=== PATIENT | female | born 1970 | race Caucasian/White ===

== ENCOUNTER 2021-09-23 12:10 | Emergency (ER) | payer SELFPAY ==
[2021-09-23 12:12] VITALS: BP 139/110; PULSE 100; RESP 20; TEMP 36.6; O2SAT 95; BMI 58.4
[2021-09-23 12:24] VITALS: O2SAT 95
--- NOTE | 2021-09-23 12:30 | EKG12_ITS ---
Test Reason : Blood Pressure : / mmHG Vent. Rate : 087 BPM Atrial Rate : 087 BPM P-R Int : 150 ms QRS Dur : 086 ms QT Int : 364 ms P-R-T Axes : 025 041 003 degrees QTc Int : 438 ms Normal sinus rhythm T wave abnormality, consider inferior ischemia Abnormal ECG Confirmed by SHERRY LINTON, RONAN ([id number]), online editor ANASTASIA PENALOZA ([id number]) on 09/24/2021 2:44:30 PM Referred By: DANILO Confirmed By:RONAN POWELL MD
[2021-09-23 12:31] VITALS: BP 147/96; PULSE 86; RESP 16
--- NOTE | 2021-09-23 12:32 | EX.ED.DYSGE1 ---
HPI <CHANCE Valdez - Last Filed: 09/23/21 14:44> History of Present Illness Chief Complaint: Shortness of Breath Narrative Narrative: 51-year-old female with history of obesity, atrial fibrillation however does not take any medicine due to an ablation. Patient states that over the last several weeks she has been feeling off, for the last 1 week she has been feeling short of breath as if she cannot get enough air in her lungs. Patient does have a pocket pulse oximeter, this did show the patient to have a pulse ox of 77% with a heart rate of 54, however she states that this could not be accurate. Patient also states she does have intermittent anxiety. Patient denies any fevers or chills. Patient denies any frequent trips, history of DVTs, pulmonary embolus. Patient is here for evaluation [facility] <CHANCE Valdez - Last Filed: 09/23/21 14:44> [facility] Medical History (Updated 09/23/21 @ 14:42 by CHANCE Valdez) A-fib Home Medications metoprolol succinate 50 mg PO DAILY 04/07/15 [History Last Taken Unknown] flecainide 100 mg PO BID 05/15/15 [History Last Taken Unknown] rivaroxaban [Xarelto] 1 ea PO DAILY 05/15/15 [History Last Taken Unknown] Allergy/AdvReac Type Severity Reaction Status Date / Time venom-honey bee Allergy Anaphylaxis Verified 05/15/15 22:17 [bee venom (honey bee)] adhesive AdvReac Rash Verified 05/15/15 22:17 Surgical History (Updated 09/23/21 @ 12:25 by Isra Diego) H/O: History of cardiac radiofrequency ablation Social History Smoking Status: Never smoker ROS <CHANCE Valdez - Last Filed: 09/23/21 14:44> ROS ED ROS Narrative Constitutional: Negative for fever, chills, weight loss or gain, weakness Eyes: Negative for vision loss, vision change, double vision ENT: Negative for any hearing changes, ringing in the ears, dizziness, discharge, pain Nose: Negative for any congestion, runny nose, sinus pain, allergies Throat: Negative for any sore throat hoarseness, voice changes, Cardiovascular: Negative for any chest pain, palpitations, racing heartbeat. Positive for chest pressure Respiratory: Negative for any coughs, sputum production, coughing, hemoptysis. Positive shortness of breath, shortness of breath on exertion Gastrointestinal: Negative for any abdominal pain, nausea, vomiting, diarrhea, constipation, blood in stool, blood in vomit : Negative for any urinary frequency, incontinence, dysuria, retention, blood in urine Muscle skeletal: Negative for any muscle joint pain, stiffness, myalgias, arthralgias, neck pain, back pain Neurological: Negative for any headache, head injury, dizziness, syncope, numbness or tingling Skin: Negative for any rashes, lumps, itching, abrasions, lacerations Psychiatric: Negative for any depression, anxiety, stress, suicidal ideation, homicidal ideation Hematologic: Negative for any easy bruising, excessive bruising, easy bleeding Allergies: Negative for any eczema, hives, rash EXAM <CHANCE Valdez - Last Filed: 09/23/21 14:44> Physical Exam Narrative Exam Narrative: Patient's vital signs are stable, patient appears to be in no respiratory distress Const Vital Signs: 09/23/21 12:12 09/23/21 12:24 09/23/21 12:31 Temperature 97.8 F Temperature Source Temporal Pulse Rate 100 86 Respiratory Rate 20 H 16 Respiratory Effort Short of Breath Respiratory Depth Shallow Respiratory Pattern Tachypnea Blood Pressure 139/110 H 147/96 H Blood Pressure Mean 119 113 Pulse Ox 95 Oxygen Delivery Method Room Air Room Air 09/23/21 14:32 Temperature Temperature Source Pulse Rate 82 Respiratory Rate 18 Respiratory Effort Respiratory Depth Respiratory Pattern Blood Pressure Blood Pressure Mean Pulse Ox 95 Oxygen Delivery Method Room Air Positive well nourished and well developed General Appearance ED: well developed HEENT Reports TM's clear and moist mucous membranes Tympanic Membrane ED: Yes TM's clear Eyes PERRL and EOMs intact bilaterally Neck no lymphadenopathy and supple Chest Wall inspection of chest normal and palpation of chest normal Resp normal respiratory effort and clear to auscultation bilaterally Cardio regular rate, regular rhythm, S1 normal heart sound, S2 normal heart sound and no murmurs GI normal to inspection, nondistended, normoactive bowel sounds, non-tender and non-distended Auscultation: normoactive bowel sounds Palpation: soft Back/Spine no CVA tenderness General Back: CVA tenderness Extremity normal to inspection General Extremety ED: Yes tenderness Neuro oriented x3 and CN's II-XII intact bilaterally Sensorium / Orientation: alert Motor Exam: strength 5/5 throughout Psych mental status grossly normal Skin no rashes or lesions noted <Dr. Annette Farnsworth MD - Last Filed: 09/23/21 14:40> Physical Exam Const Vital Signs: 09/23/21 12:12 09/23/21 12:24 09/23/21 12:31 Temperature 97.8 F Temperature Source Temporal Pulse Rate 100 86 Respiratory Rate 20 H 16 Respiratory Effort Short of Breath Respiratory Depth Shallow Respiratory Pattern Tachypnea Blood Pressure 139/110 H 147/96 H Blood Pressure Mean 119 113 Pulse Ox 95 Oxygen Delivery Method Room Air Room Air 09/23/21 14:32 Temperature Temperature Source Pulse Rate 82 Respiratory Rate 18 Respiratory Effort Respiratory Depth Respiratory Pattern Blood Pressure Blood Pressure Mean Pulse Ox 95 Oxygen Delivery Method Room Air MDM <CHANCE Valdez - Last Filed: 09/23/21 14:44> [facility] Narrative Medical decision making narrative: Patient appears well, patient appears nontoxic, vital signs are stable. Patient presents to the emergency department with multiple days of feeling short of breath, she was concerned about a low pulse ox reading from her pulse oximeter that she has at home. Patient did receive a full respiratory work-up. Patient's laboratory values were unremarkable, patient's chest x-ray showed an elevation of the right heel diaphragm however overall the lungs are clear. Patient did have an elevated D-dimer, patient did receive a CTA of the chest to rule out any pulmonary embolus. Patient did have a normal CTA of the chest with no pulmonary embolus. At this time, I believe the patient feels much better after negative work-up. At this time there is no evidence of any CAD, HI, pulmonary embolus, pneumonia. Patient will follow up closely with her PCP and instructed to see her for further evaluation including stress test, echocardiogram. Patient stable for discharge Lab Data Attestation: I reviewed the patient's lab results. Labs: Laboratory Results - last 24 hr 09/23/21 09/23/21 09/23/21 12:30 12:50 12:50 WBC 6.9 RBC 4.80 Hgb 14.0 Hct 42.5 MCV 88.5 MCH 29.2 MCHC 32.9 RDW Std Deviation 45.3 H RDW Coeff of Cindy 14.0 Plt Count 269 MPV 9.4 Immature Gran % (Auto) 0.100 Neut % (Auto) 72.2 H Lymph % (Auto) 22.5 [place] % (Auto) 3.6 Eos % (Auto) 1.3 Baso % (Auto) 0.3 Absolute Neuts (auto) 4.9 Absolute Lymphs (auto) 1.54 Nucleated RBC % 0 D-Dimer Quant (PE/DVT) 0.54 H* Sodium 138 Potassium 3.3 L Chloride 104 Carbon Dioxide 27.0 Anion Gap 7 BUN 11 Creatinine 1.02 Estim Creat Clear Calc 53.98 Est GFR (MDRD) Af Amer 73 Est GFR (MDRD) Non-Af 61 BUN/Creatinine Ratio 10.8 Glucose 131 H Calcium 9.0 Troponin I High Sens < 3 L B-Natriuretic Peptide 09/23/21 12:50 WBC RBC Hgb Hct MCV MCH MCHC RDW Std Deviation RDW Coeff of Cindy Plt Count MPV Immature Gran % (Auto) Neut % (Auto) Lymph % (Auto) [place] % (Auto) Eos % (Auto) Baso % (Auto) Absolute Neuts (auto) Absolute Lymphs (auto) Nucleated RBC % D-Dimer Quant (PE/DVT) Sodium Potassium Chloride Carbon Dioxide Anion Gap BUN Creatinine Estim Creat Clear Calc Est GFR (MDRD) Af Amer Est GFR (MDRD) Non-Af BUN/Creatinine Ratio Glucose Calcium Troponin I High Sens B-Natriuretic Peptide 27.7 Radiography Diagnostic Testing: Clinical Impression(s) from Imaging Studies Chest X-Ray 09/23/21 13:03 IMPRESSION: There is elevation of the right hemidiaphragm. The lungs are clear. Electronically Signed: Shilo Brown MD at 13:51 EDT , Chest CTA 09/23/21 13:27 IMPRESSION: Normal CTA chest examination, without a demonstrated pulmonary embolism or arterial dissection. Electronically Signed: Shilo Brown MD at 14:08 EDT , EKG Normal sinus rhythm: Attestation: I personally reviewed and interpreted this EKG as follows: Interpretation: Sinus Rhythm Comments: Normal sinus rhythm, rate of 87 bpm, MT interval 150 ms, QRS duration 86 ms, no acute ST elevation, no acute infarct noted <Dr. Annette Farnsworth MD - Last Filed: 09/23/21 14:40> [facility] Lab Data Labs: Laboratory Results - last 24 hr 09/23/21 09/23/21 09/23/21 12:30 12:50 12:50 WBC 6.9 RBC 4.80 Hgb 14.0 Hct 42.5 MCV 88.5 MCH 29.2 MCHC 32.9 RDW Std Deviation 45.3 H RDW Coeff of Cindy 14.0 Plt Count 269 MPV 9.4 Immature Gran % (Auto) 0.100 Neut % (Auto) 72.2 H Lymph % (Auto) 22.5 [place] % (Auto) 3.6 Eos % (Auto) 1.3 Baso % (Auto) 0.3 Absolute Neuts (auto) 4.9 Absolute Lymphs (auto) 1.54 Nucleated RBC % 0 D-Dimer Quant (PE/DVT) 0.54 H* Sodium 138 Potassium 3.3 L Chloride 104 Carbon Dioxide 27.0 Anion Gap 7 BUN 11 Creatinine 1.02 Estim Creat Clear Calc 53.98 Est GFR (MDRD) Af Amer 73 Est GFR (MDRD) Non-Af 61 BUN/Creatinine Ratio 10.8 Glucose 131 H Calcium 9.0 Troponin I High Sens < 3 L B-Natriuretic Peptide 09/23/21 12:50 WBC RBC Hgb Hct MCV MCH MCHC RDW Std Deviation RDW Coeff of Cindy Plt Count MPV Immature Gran % (Auto) Neut % (Auto) Lymph % (Auto) [place] % (Auto) Eos % (Auto) Baso % (Auto) Absolute Neuts (auto) Absolute Lymphs (auto) Nucleated RBC % D-Dimer Quant (PE/DVT) Sodium Potassium Chloride Carbon Dioxide Anion Gap BUN Creatinine Estim Creat Clear Calc Est GFR (MDRD) Af Amer Est GFR (MDRD) Non-Af BUN/Creatinine Ratio Glucose Calcium Troponin I High Sens B-Natriuretic Peptide 27.7 Radiography Diagnostic Testing: Clinical Impression(s) from Imaging Studies Chest X-Ray 09/23/21 13:03 IMPRESSION: There is elevation of the right hemidiaphragm. The lungs are clear. Electronically Signed: Shilo Brown MD at 13:51 EDT , Chest CTA 09/23/21 13:27 IMPRESSION: Normal CTA chest examination, without a demonstrated pulmonary embolism or arterial dissection. Electronically Signed: Shilo Brown MD at 14:08 EDT , Treatment and Re-Evaluation Narrative: Patient seen and evaluated with [facility]. I personally interviewed and examined the patient. I was involved in all aspects of patient's orders, interpretation of results, and treatment. Patient presents with several day history of difficulty getting a deep breath. She states she really does not feel short of breath but has trouble getting a deep breath. She has just felt slightly off. She denies chest pain or palpitations. She does have a home pulse ox machine that reportedly was reading a pulse ox of 77 and a heart rate in the 50s. It is noted that she has dark fingernail tamazight on. Patient does have a history of A. fib but has had cardiac ablation. She is not currently on medication. Patient sitting upright in bed no acute distress. Speaking in full sentences without difficulty. Head and neck examination unremarkable. Heart is regular rate and rhythm. Lung sounds are clear. Abdomen is soft and nontender. EKG, chest x-ray, lab work obtained. Chest x-ray per my interpretation shows no focal infiltrate. EKG reveals no ischemia. Lab work reviewed and remarkable only for slightly elevated D-dimer. CTA is unremarkable. Patient has had no episodes of bradycardia or hypoxia here. Patient is given return instructions and will continue supportive care. Discharge Plan Triage Chief Complaint: Shortness of Breath ED Midlevel Provider: Alexander Harden ED Provider: Annette Farnsworth Dx/Rx/DC Orders Clinical Impression: Shortness of breath, Dyspnea Instructions: Shortness of Breath Maximizing ..., ED Dyspnea Prescriptions: No Action metoprolol succinate 50 MG tablet 50 mg PO DAILY RF: 0 flecainide 100 MG tablet 100 mg PO BID RF: 0 rivaroxaban [Xarelto DVT-PE Treat 30d Start] 1 EACH Tab.Ds.Pk 1 ea PO DAILY RF: 0 Primary Care Provider: Rishabh Hogue Referrals: Rishabh Hogue MD [Primary Care Provider] - Activity Restrictions/Additional Instructions: You need to follow-up with your PCP, you need to follow-up and have a stress test as well as an echocardiogram outpatient.
--- NOTE | 2021-09-23 13:03 | RAD_ITS ---
STUDY: X-RAY CHEST REASON FOR EXAM: Female, 51 years old. Shortness of breath TECHNIQUE: Single AP portable view of the chest. COMPARISON: Comparison is made with prior study dated 04/07/2015. FINDINGS: EKG electrodes are seen. There is elevation of the right hemidiaphragm. The lungs are clear. There is no demonstrated pleural abnormality. Normal size heart. Normal mediastinum and bob. Normal visualized pulmonary arteries. Normal visualized aortic arch and descending thoracic aorta. There are degenerative changes of the visualized thoracic spine. Normal visualized ribs, clavicles, and shoulders. There is no demonstrated abnormality of the visualized soft tissue structures of the upper abdomen. RAD/Chest 1 View (Portable) IMPRESSION: There is elevation of the right hemidiaphragm. The lungs are clear. Electronically Signed: Shilo Brown MD at 13:51 EDT ,
[2021-09-23 13:06] LABS: Absolute Lymphocyte Count 1.54 X10^3/uL (0.83-4.51); Absolute Neutrophil Count 4.9 X10^3/uL (2.0-7.7); Basophil# 0.02 X10^3/uL; Basophil% 0.3 % (0-1); Eosinophil# 0.09 X10^3/uL; Eosinophils% 1.3 % (0-5); Hematocrit 42.5 % (37-47); Lymphocyte # 1.54 X10^3/ul (0.83-4.51); Lymphocyte % 22.5 % (19-41); Mean Corp Hgb Conc 32.9 g/dL (32-36); Mean Corpuscular Hgb 29.2 pg (27.0-32.0); Mean Corpuscular Volume 88.5 fL (81-99); Mean Platelet Vol. 9.4 fl (6.2-12.0); Monocyte# 0.25 X10^3/uL; Monocyte% 3.6 % (0-10); NRBC Flagged by Analyzer 0 % (0-5); Neutrophil # 4.94 X10^3/uL (2.7-7.7); Neutrophil % 72.2 % (47-70); Platelet Count 269 K/mm3 (150-450); RBC Distribution Width SD 45.3 fl (35.1-43.9); White Blood Count 6.9 K/mm3 (4.4-11.0)
[2021-09-23 13:17] LABS: D-Dimer Quantitative (DVT/PE) 0.54 FEU/ug/m (0.27-0.49)
[2021-09-23 13:23] LABS: Anion Gap 7 (5-15); BUN 11 mg/dL (7-18); BUN/Creat Ratio 10.8 RATIO (10-20); Chloride 104 mmol/L (98-107); Creatinine, Serum 1.02 mg/dL (0.55-1.02); EST Glomerular Filtration Rate 61 mL/min (>60); Est Glom Filt Rate - Afr Amer 73 mL/min (>60); Estimated Creatinine Clearance 53.98 ml/min; Glucose 131 mg/dL (74-106); Potassium 3.3 mmol/L (3.5-5.1); Sodium Level 138 mmol/L (136-145); Troponin-I HS < 3 pg/mL (3.0-54.0)
--- NOTE | 2021-09-23 13:27 | CT_ITS ---
STUDY: CTA CHEST REASON FOR EXAM: Female, 51 years old. Concern for PE. Shortness of breath. Tachycardia. RADIATION DOSAGE (If Supplied By Facility): CTDIvol = ( 19.74 ) mGy, DLP = ( 747.06 ) mGycm TECHNIQUE: The examination was performed with the intravenous administration of IV 100mL [id number]-[id number]. Post-processing of the angiographic images was performed, with multiplanar reformation and 3D reconstruction. Individualized dose optimization techniques were used for this CT. COMPARISON: Comparison is made with prior examination dated 03/17/2015. FINDINGS: Normal enhancement of the main pulmonary artery and right and left pulmonary arteries. Normal enhancement of the bilateral peripheral pulmonary arteries. There is no demonstrated pulmonary embolism. Normal thoracic aorta and visualized great vessels. There is no demonstrated aortic dissection. Normal heart and pericardium. Normal mediastinum. Normal hilar regions. Normal visualized trachea and bronchi. The lungs are well expanded. Normal pulmonary parenchyma. Normal pleura. Normal chest wall structures. There are degenerative changes of thoracic spine. Normal visualized upper abdomen. CT/CTA Chest W/WO Contrast IMPRESSION: Normal CTA chest examination, without a demonstrated pulmonary embolism or arterial dissection. Electronically Signed: Shilo Brown MD at 14:08 EDT ,
[2021-09-23 13:41] LABS: BNP,B-Type NATRIURETIC PEPTIDE 27.7 pg/mL (0-100)
[2021-09-23 14:32] VITALS: PULSE 82; RESP 18; O2SAT 95
== END 2021-09-23 14:54 | disposition home or self-care (01) ==
LOC: ED 12:52
PROVIDERS: Nurse Practitioner; Emergency Provider Emergency Medicine; PCP Family Medicine; Visit Provider Emergency Medicine
DX: R06.02 Shortness of breath (principal); I48.91 Unspecified atrial fibrillation; Z68.43 Body mass index [BMI] 50.0-59.9, adult; E66.9 Obesity, unspecified; F41.9 Anxiety disorder, unspecified; Z79.01 Long term (current) use of anticoagulants; Z79.899 Other long term (current) drug therapy
CPT/HCPCS: 71045; 71275; 80048; 83880; 84484; 85025; 85379; 93005; 99285; Q9967; A4216

== ENCOUNTER → 2022-12-13 | Outpatient (CLI) | payer BC, SELFPAY ==
[2022-12-13 13:49] LABS: Vitamin D,25 Hydroxy 105.6 ng/mL
[2022-12-13 13:54] LABS: Erythrocyte Sedimentation Rate 17 mm/hr (0-30)
[2022-12-13 13:58] LABS: Absolute Lymphocyte Count 1.96 X10^3/uL (0.83-4.51); Absolute Neutrophil Count 5.7 X10^3/uL (2.0-7.7); Basophil# 0.04 X10^3/uL; Basophil% 0.5 % (0-1); Eosinophil# 0.13 X10^3/uL; Eosinophils% 1.6 % (0-5); Hematocrit 47.1 % (37-47); Hemoglobin 15.8 g/dL (12.0-15.0); Lymphocyte # 1.96 X10^3/ul (0.83-4.51); Lymphocyte % 23.9 % (19-41); Mean Corp Hgb Conc 33.5 g/dL (32-36); Mean Corpuscular Hgb 28.9 pg (27.0-32.0); Mean Corpuscular Volume 86.1 fL (81-99); Monocyte# 0.32 X10^3/uL; Monocyte% 3.9 % (0-10); NRBC Flagged by Analyzer 0 % (0-5); Neutrophil # 5.72 X10^3/uL (2.7-7.7); Neutrophil % 69.7 % (47-70); Platelet Count 299 K/mm3 (150-450); RBC Distribution Width SD 43.9 fl (35.1-43.9); Red Blood Count 5.47 M/mm3 (4.2-5.4); White Blood Count 8.2 K/mm3 (4.4-11.0)
[2022-12-13 14:00] LABS: ALB/GLOB Ratio 0.8 RATIO (0.9-2.4); AST(SGOT) 10 U/L (15-37); Alanine Aminotransfer ALT/SGPT 22 U/L (13-56); Albumin, Serum 3.4 g/dL (3.2-5.0); Alkaline Phosphatase 75 U/L (45-117); Anion Gap 6 (5-15); BUN 14 mg/dL (7-18); BUN/Creat Ratio 15.8 RATIO (10-20); Chloride 108 mmol/L (98-107); Cholesterol 233 mg/dL (200); Creatinine, Serum 0.89 mg/dL (0.55-1.02); EST Glomerular Filtration Rate 71 mL/min (>60); Est Glom Filt Rate - Afr Amer 86 mL/min (>60); Globulin 4.3 g/dL (2.2-4.2); Glucose 92 mg/dL (74-106); High Density Lipoprotein 52 mg/dL; Magnesium 2.3 mg/dL (1.6-2.6); Potassium 3.4 mmol/L (3.5-5.1); Protein, Total 7.7 g/dL (6.4-8.2); Rheumatoid Factor < 10.0 IU/mL (<15); Sodium Level 139 mmol/L (136-145); Thyroid Stim Hormone (TSH) 2.83 uIU/mL (0.358-3.74); Triglycerides 103 mg/dL; Uric Acid 4.9 mg/dL (2.6-6.0); Very Low Density Lipoprotein 21 mg/dL (5-40)
[2022-12-14 14:10] LABS: ANTINUCLEAR ANTIBODIES DIRECT Negative (Negative)
[2022-12-15 11:08] LABS: PROEL- Albumin 3.4 g/dL (2.9-4.4); PROEL- Alpha-1 Globulin 0.2 g/dL (0.0-0.4); PROEL- Alpha-2 Globulin 0.8 g/dL (0.4-1.0); PROEL- Beta Globulin 1.2 g/dL (0.7-1.3); PROEL- Gamma Globulin 1.3 g/dL (0.4-1.8); PROEL- Globulin, Total 3.5 g/dL (2.2-3.9); PROEL- TOTAL PROTEIN 6.9 g/dL (6.0-8.5)
== END | disposition home or self-care (01) ==
PROVIDERS: PCP Family Medicine; Referring Provider Family Medicine; Visit Provider Family Medicine
DX: M13.0 Polyarthritis, unspecified (principal); I48.91 Unspecified atrial fibrillation; Z13.220 Encounter for screening for lipoid disorders; E55.9 Vitamin D deficiency, unspecified
CPT/HCPCS: 36415; 80053; 80061; 82306; 83735; 84165; 84443; 84550; 85025; 85652; 86038; 86140; 86431

== ENCOUNTER → 2022-12-14 | Outpatient (CLI) | payer BC, SELFPAY ==
--- NOTE | 2022-12-14 10:28 | US_ITS ---
EXAM: US SOFT TISSUES OF THE NECK CLINICAL INDICATION: SUPRACLAVICULAR MASS TECHNIQUE: Real-time ultrasound scan of the soft tissues of the neck with image documentation. COMPARISON: No relevant prior studies available. FINDINGS: SOFT TISSUES: Unremarkable. No abscess. No foreign body. No mass or fluid collection in the area of interest right supraclavicular region. LYMPH NODES: Unremarkable as visualized. US/Head/Neck Soft Tissue IMPRESSION: No mass or fluid collection identified in the area of interest right supraclavicular region. Electronically Signed: Gerardo Lawrence MD at 6:31 EDT ,
== END | disposition home or self-care (01) ==
LOC: US 10:27
PROVIDERS: PCP Family Medicine; Referring Provider Family Medicine; Visit Provider Family Medicine
DX: R22.2 Localized swelling, mass and lump, trunk (principal)
CPT/HCPCS: 76536

== ENCOUNTER → 2023-01-18 | Outpatient (CLI) | payer BC, SELFPAY ==
[2023-01-18 18:09] LABS: Hematocrit 48.7 % (37-47); Hemoglobin 15.4 g/dL (12.0-15.0); Mean Corp Hgb Conc 31.6 g/dL (32-36); Mean Corpuscular Volume 88.5 fL (81-99); Platelet Count 285 K/mm3 (150-450); RBC Distribution Width CV 14.2 % (11.6-14.6); RBC Distribution Width SD 45.7 fl (35.1-43.9); White Blood Count 9.5 K/mm3 (4.4-11.0)
[2023-01-18 19:06] LABS: Follicle Stimulating Hormone 9.7 mIU/mL; Luteinizing Hormone 21.8 mIU/mL
[2023-01-20 13:08] LABS: CCP IgG Antibodies 6 units (0-19)
[2023-01-23 15:07] LABS: Erythropoietin 10.3 mIU/mL (2.6-18.5)
--- NOTE | 2023-03-06 16:22 | RAD_ITS ---
EXAM: XR LEFT HAND COMPLETE, 3 OR MORE VIEWS CLINICAL INDICATION: pain, swelling TECHNIQUE: Frontal, lateral and oblique views of the left hand. COMPARISON: No relevant prior studies available. FINDINGS: BONES/JOINTS: Unremarkable. No acute fracture. No subluxation. Normal alignment. Preservation of the joint space. No sclerotic or destructive changes observed. SOFT TISSUES: Unremarkable. No soft tissue swelling or gas. No radiopaque foreign body. RAD/Hand Min 3 Views IMPRESSION: Negative left hand x-rays. Electronically Signed: Nova Melton MD at 8:35 EDT ,
== END | disposition home or self-care (01) ==
LOC: MFPLAB 15:38
PROVIDERS: PCP Family Medicine; Visit Provider Family Medicine
DX: M79.89 Other specified soft tissue disorders (principal); R79.82 Elevated C-reactive protein (CRP); N95.1 Menopausal and female climacteric states
CPT/HCPCS: 36415; 82668; 83001; 83002; 85027; 86140; 86200

== ENCOUNTER → 2023-03-06 | Outpatient (CLI) | payer BC, SELFPAY ==
--- NOTE | 2023-03-06 16:22 | RAD_ITS ---
STUDY: X-RAY - RIGHT HAND REASON FOR EXAM: Female, 52 years old. PAIN, SWELLING TECHNIQUE: 3 view(s) of the hand. COMPARISON: None. FINDINGS: Normal radiocarpal articulation. Normal distal radioulnar joint. Normal visualized carpal bones. Normal carpal articulations Normal carpometacarpal articulation of the thumb. Normal second through fifth carpometacarpal joints. Normal metacarpi. Normal metacarpophalangeal joint of the thumb. Normal interphalangeal joint of the thumb. Normal proximal and distal phalanges of the thumb. Normal metacarpophalangeal joints of the second through fifth fingers. Normal proximal and distal interphalangeal joints of the second through fifth fingers. Normal phalanges of the second through fifth fingers. The soft tissue structures are unremarkable. RAD/Hand Min 3 Views IMPRESSION: Normal x-ray examination of the hand. Electronically Signed: Irvin Pinon MD at 17:21 EDT ,
== END | disposition home or self-care (01) ==
LOC: MTLAB 16:12
PROVIDERS: PCP Family Medicine; Referring Provider Family Medicine; Visit Provider Family Medicine
DX: M79.89 Other specified soft tissue disorders (principal)
CPT/HCPCS: 73130

== ENCOUNTER → 2023-03-16 | Outpatient (CLI) | payer BC, SELFPAY ==
[2023-03-16 18:24] LABS: Hematocrit 48.9 % (37-47); Hemoglobin 15.6 g/dL (12.0-15.0); Mean Corp Hgb Conc 31.9 g/dL (32-36); Mean Corpuscular Hgb 28.3 pg (27.0-32.0); Mean Corpuscular Volume 88.6 fL (81-99); Mean Platelet Vol. 10.3 fl (6.2-12.0); Platelet Count 277 K/mm3 (150-450); RBC Distribution Width CV 14.6 % (11.6-14.6); RBC Distribution Width SD 47.6 fl (35.1-43.9); Red Blood Count 5.52 M/mm3 (4.2-5.4); White Blood Count 7.7 K/mm3 (4.4-11.0)
[2023-03-16 18:28] LABS: ALB/GLOB Ratio 0.8 RATIO (0.9-2.4); AST(SGOT) 10 U/L (15-37); Alanine Aminotransfer ALT/SGPT 20 U/L (13-56); Albumin, Serum 3.3 g/dL (3.2-5.0); Alkaline Phosphatase 75 U/L (45-117); Anion Gap 8 (5-15); BUN 15 mg/dL (7-18); BUN/Creat Ratio 17.3 RATIO (10-20); Chloride 108 mmol/L (98-107); Creatinine, Serum 0.87 mg/dL (0.55-1.02); EST Glomerular Filtration Rate 73 mL/min (>60); Est Glom Filt Rate - Afr Amer 88 mL/min (>60); Globulin 4.2 g/dL (2.2-4.2); Glucose 86 mg/dL (74-106); Magnesium 2.4 mg/dL (1.6-2.6); Potassium 3.7 mmol/L (3.5-5.1); Protein, Total 7.5 g/dL (6.4-8.2); Sodium Level 137 mmol/L (136-145); Thyroid Stim Hormone (TSH) 2.34 uIU/mL (0.358-3.74)
[2023-03-16 18:46] LABS: Erythrocyte Sedimentation Rate 35 mm/hr (0-30)
[2023-03-20 16:09] LABS: Erythropoietin 6.4 mIU/mL (2.6-18.5)
== END | disposition home or self-care (01) ==
LOC: MTLAB 14:37
PROVIDERS: PCP Family Medicine; Visit Provider Family Medicine
DX: R71.8 Other abnormality of red blood cells (principal); R20.2 Paresthesia of skin; E55.9 Vitamin D deficiency, unspecified
CPT/HCPCS: 36415; 80053; 82306; 82668; 83735; 84443; 85027; 85652

== ENCOUNTER → 2023-07-18 | Outpatient (CLI) | payer BC, SELFPAY ==
[2023-07-18 16:05] LABS: Hematocrit 47.5 % (37-47); Hemoglobin 15.2 g/dL (12.0-15.0); Mean Corpuscular Hgb 28.3 pg (27.0-32.0); Mean Corpuscular Volume 88.5 fL (81-99); Mean Platelet Vol. 9.3 fl (6.2-12.0); Platelet Count 257 K/mm3 (150-450); RBC Distribution Width CV 14.7 % (11.6-14.6); RBC Distribution Width SD 47.8 fl (35.1-43.9); Red Blood Count 5.37 M/mm3 (4.2-5.4); White Blood Count 6.5 K/mm3 (4.4-11.0)
[2023-07-18 16:12] LABS: Anion Gap 5 (5-15); BUN 16 mg/dL (7-18); BUN/Creat Ratio 19.5 RATIO (10-20); CRP 7.47 mg/L (0.0-3.0); Calcium,Total 9.2 mg/dL (8.5-10.1); Chloride 105 mmol/L (98-107); Cholesterol 225 mg/dL (200); Creatinine, Serum 0.82 mg/dL (0.55-1.02); EST Glomerular Filtration Rate 78 mL/min (>60); Est Glom Filt Rate - Afr Amer 94 mL/min (>60); Glucose 90 mg/dL (74-106); High Density Lipoprotein 59 mg/dL; Magnesium 2.5 mg/dL (1.6-2.6); Potassium 3.6 mmol/L (3.5-5.1); Sodium Level 137 mmol/L (136-145); Triglycerides 102 mg/dL; Very Low Density Lipoprotein 20 mg/dL (5-40); Vitamin D,25 Hydroxy 114.3 ng/mL
[2023-07-18 17:02] LABS: Erythrocyte Sedimentation Rate 11 mm/hr (0-30)
== END | disposition home or self-care (01) ==
LOC: MTLAB 14:05
PROVIDERS: PCP Family Medicine; Referring Provider Family Medicine; Visit Provider Family Medicine
DX: E55.9 Vitamin D deficiency, unspecified (principal); G47.33 Obstructive sleep apnea (adult) (pediatric); R20.2 Paresthesia of skin; Z13.220 Encounter for screening for lipoid disorders; R79.89 Other specified abnormal findings of blood chemistry; R71.8 Other abnormality of red blood cells
CPT/HCPCS: 36415; 80048; 80061; 82306; 83735; 85027; 85652; 86140

== ENCOUNTER → 2024-01-23 | Outpatient (CLI) | payer BC, SELFPAY ==
[2024-01-23 17:59] LABS: Vitamin D,25 Hydroxy 62.1 ng/mL
[2024-01-23 18:13] LABS: Anion Gap 6 (5-15); BUN 14 mg/dL (7-18); BUN/Creat Ratio 17.9 RATIO (10-20); CRP 8.44 mg/L (0.0-3.0); Calcium,Total 8.7 mg/dL (8.5-10.1); Chloride 105 mmol/L (98-107); Creatinine, Serum 0.78 mg/dL (0.55-1.02); EST Glomerular Filtration Rate 82 mL/min (>60); Est Glom Filt Rate - Afr Amer 99 mL/min (>60); Free T3 2.3 pg/mL (2.18-3.98); Glucose 87 mg/dL (74-106); Magnesium 2.3 mg/dL (1.6-2.6); Potassium 3.7 mmol/L (3.5-5.1); Sodium Level 138 mmol/L (136-145); T4 Free Direct 0.99 ng/dL (0.76-1.46); Thyroid Stim Hormone (TSH) 2.24 uIU/mL (0.358-3.74)
== END | disposition home or self-care (01) ==
LOC: MFPLAB 14:21
PROVIDERS: PCP Family Medicine; Visit Provider Family Medicine
DX: Z13.29 Encounter for screening for other suspected endocrine disorder (principal); Z13.1 Encounter for screening for diabetes mellitus; E55.9 Vitamin D deficiency, unspecified; R79.82 Elevated C-reactive protein (CRP)
CPT/HCPCS: 36415; 80048; 82306; 83735; 84439; 84443; 84481; 86140